=== PATIENT | female | born 1950 | race African-American/Black ===

== ENCOUNTER 2016-07-23 22:07 | Emergency (ER) | payer SELFPAY ==
[~2016-07-23] VITALS: Ht 162.6 cm; Wt 61.0 kg
[2016-07-23 22:09] VITALS: BP 169/83
== END 2016-07-23 22:33 | disposition left against medical advice (07) ==
LOC: ER 22:15
DX: R51 Headache (principal); Z53.21 Procedure and treatment not carried out due to patient leaving prior to being seen by health care provider

== ENCOUNTER 2017-12-03 07:21 | Emergency (ER) | payer SELFPAY ==
[~2017-12-03] VITALS: Ht 162.6 cm; Wt 68.0 kg
[2017-12-03] MEDS ORDERED: ALTEPLASE 100MG/VIAL IV ONE (08:30)
[2017-12-03 08:43] LABS: BASOPHILS % 0.4 % (0.0-2.0); EOSINOPHILS % 1.1 % (0.0-5.0); HEMATOCRIT. 36.7 % (36.0-48.0); HEMOGLOBIN. 12.2 g/dL (12.0-16.0); LYMPHOCYTES % 19.1 % (20.0-50.0); MEAN CORPUSCULAR VOLUME 93.1 fL (81.0-99.0); MEAN PLATELET VOLUME 8.2 fl (7.4-10.4); NEUTROPHILS % 71.4 % (40.0-76.0); PLATELET 289 x1000/uL (130-400); RED BLOOD CELL COUNT 3.95 mill/uL (4.2-5.4); RED CELL DISTRIBUTION WIDTH 14.2 % (11.6-14.6)
[2017-12-03 08:48] LABS: CHLORIDE 107 mEq/L (98-107)
[2017-12-03 08:50] LABS: INR 1.1; PROTHROMBIN TIME 10.6 sec (9.1-11.1)
[2017-12-03 08:52] LABS: CLARITY URINE CLEAR (CLEAR); COLOR URINE YELLOW (YELLOW); KETONES URINE NEGATIVE (NEGATIVE); LEUKOCYTE ESTERASE URINE NEGATIVE (NEGATIVE); NITRITE URINE NEGATIVE (NEGATIVE); OCCULT BLOOD URINE TRACE (NEGATIVE); PH URINE 7.5 (4.5-8.0); PROTEIN URINE 1+ (NEGATIVE); SPECIFIC GRAVITY URINE 1.017 (1.005-1.030)
[2017-12-03 08:55] LABS: ETHANOL BLOOD < 10 mg/dL
[2017-12-03 09:21] LABS: *BARBITURATES SCREEN URINE NEGATIVE (NEGATIVE); *BENZODIAZEPINES SCREEN URINE NEGATIVE (NEGATIVE); CANNABINOID URINE SCREEN NEGATIVE (NEGATIVE); OPIATES URINE SCREEN NEGATIVE (NEGATIVE); PHENCYCLIDINE URINE SCREEN NEGATIVE (NEGATIVE)
[2017-12-03 09:22] LABS: *AMPHETAMINES SCREEN URINE NEGATIVE (NEGATIVE); *COCAINE SCREEN URINE NEGATIVE (NEGATIVE); METHADONE URINE SCREEN NEGATIVE (NEGATIVE)
[2017-12-03 10:00] VITALS: BP 160/80
== END 2017-12-03 10:00 | disposition short-term general hospital (02) ==
LOC: ER 07:21 → CANBEDREQ 10:56
DX: I63.9 Cerebral infarction, unspecified (principal); R47.01 Aphasia; I10 Essential (primary) hypertension; E11.9 Type 2 diabetes mellitus without complications; Z86.73 Personal history of transient ischemic attack (TIA), and cerebral infarction without residual deficits
CPT/HCPCS: 36415; 70450; 71045; 80053; 80305; 81003; 82962; 83880; 84484; 85025; 85610; 93005; 96374; 99285; G0482; J2997; J7030; Z7610

== ENCOUNTER 2018-03-17 18:08 | Emergency (ER) | payer MEDICARE, MEDICAID ==
[~2018-03-17] VITALS: Ht 167.6 cm; Wt 59.0 kg
[2018-03-17] MEDS ORDERED: CEFTAZIDIME PENTAHYDRATE 1G/VIAL IV NR (18:45)
[2018-03-17] MEDS ORDERED: ACETAZOLAMIDE SODIUM 500MG/VIAL IV ONE (18:45)
[2018-03-17] MEDS ORDERED: VANCOMYCIN HCL 1 GM/VIAL IJ NR (18:45)
[2018-03-17 19:34] VITALS: BP 161/77
[2018-03-17] MEDS ORDERED: BUPIVACAINE HCL/PF 0.75% (7.5MG/ML) 10ML INJ ONE (19:45)
[2018-03-17] MEDS ORDERED: LIDOCAINE HCL 2%/EPINEPHRINE/PF 10 ML VIAL INFIL ONE (19:45)
[2018-03-18] MEDS ORDERED: NEO/POLYMYX B SULF/DEXAMETH 0.1% OPHTH SUSP 5ML RIGHTEYE SCH
[2018-03-18] MEDS ORDERED: PREDNISOLONE ACETATE 1% OPHTH DROPS 1ML RIGHTEYE SCH
== END 2018-03-18 00:40 | disposition left against medical advice (07) ==
LOC: ER 18:08
DX: H44.001 Unspecified purulent endophthalmitis, right eye (principal); E11.9 Type 2 diabetes mellitus without complications
CPT/HCPCS: 96374; 99283; J0713; J1120; J3370; J3490

== ENCOUNTER 2018-05-15 14:43 | Inpatient (IN) | payer MEDICARE, MEDICAID ==
[~2018-05-15] VITALS: Ht 167.6 cm; Wt 59.9 kg
[2018-05-15] MEDS ORDERED: SODIUM CHLORIDE 0.9% 1,000 ML IV ONE (14:47)
[2018-05-15 15:16] LABS: BASOPHILS % 0.4 % (0.0-2.0); EOSINOPHILS % 0.6 % (0.0-5.0); HEMATOCRIT. 39.6 % (36.0-48.0); HEMOGLOBIN. 13.1 g/dL (12.0-16.0); LYMPHOCYTES % 25.7 % (20.0-50.0); MEAN CORPUSCULAR HEMOGLOBIN 30.4 pg (28.0-32.0); MEAN CORPUSCULAR VOLUME 91.8 fL (81.0-99.0); MEAN PLATELET VOLUME 8.1 fl (7.4-10.4); MONOCYTES % 10.7 % (2.0-8.0); NEUTROPHILS % 62.6 % (40.0-76.0); PLATELET 331 x1000/uL (130-400); RED BLOOD CELL COUNT 4.31 mill/uL (4.2-5.4); RED CELL DISTRIBUTION WIDTH 15.2 % (11.6-14.6)
[2018-05-15 15:23] LABS: CHLORIDE 101 mEq/L (98-107)
[2018-05-15 15:25] LABS: PARTIAL THROMBOPLASTIN TIME 25.7 sec (23.4-31.0); PROTHROMBIN TIME 10.3 sec (9.1-11.1)
[2018-05-15 15:28] LABS: ETHANOL BLOOD < 10 mg/dL
[2018-05-15] MEDS ORDERED: IOHEXOL-350 100 ML BOTTLE ONE (16:20)
[2018-05-15] MEDS ORDERED: ASPIRIN 325MG EC TABLET PO ONE (17:00)
[2018-05-15 19:39] LABS: CLARITY URINE CLEAR (CLEAR); COLOR URINE YELLOW (YELLOW); KETONES URINE NEGATIVE (NEGATIVE); LEUKOCYTE ESTERASE URINE NEGATIVE (NEGATIVE); NITRITE URINE NEGATIVE (NEGATIVE); OCCULT BLOOD URINE 1+ (NEGATIVE); PH URINE 6.5 (4.5-8.0); PROTEIN URINE 1+ (NEGATIVE); SPECIFIC GRAVITY URINE 1.074 (1.005-1.030)
[2018-05-15 20:05] LABS: *AMPHETAMINES SCREEN URINE NEGATIVE (NEGATIVE); *BARBITURATES SCREEN URINE NEGATIVE (NEGATIVE); *BENZODIAZEPINES SCREEN URINE NEGATIVE (NEGATIVE); *COCAINE SCREEN URINE NEGATIVE (NEGATIVE)
[2018-05-15 20:06] LABS: CANNABINOID URINE SCREEN NEGATIVE (NEGATIVE); METHADONE URINE SCREEN NEGATIVE (NEGATIVE); OPIATES URINE SCREEN NEGATIVE (NEGATIVE); PHENCYCLIDINE URINE SCREEN NEGATIVE (NEGATIVE)
[2018-05-15] MEDS ORDERED: CEFTRIAXONE 1 G PREMIX 50 ML IV ONE (20:30)
[2018-05-15] MEDS ORDERED: GUAIFENESIN 200MG/10ML SUGAR FREE UDC PO PRN (21:00)
[2018-05-15] MEDS ORDERED: ACETAMINOPHEN 650MG SUPP PR PRN (21:00)
[2018-05-15] MEDS ORDERED: ONDANSETRON HCL 4MG/2ML INJ IV PRN (21:00)
[2018-05-15] MEDS ORDERED: IPRATROPIUM/ALBUTEROL 0.5-3(2.5)MG/3ML NEB INH PRN (21:00)
[2018-05-15] MEDS ORDERED: ACETAMINOPHEN 650MG/20.3ML UDC GT PRN (21:00)
[2018-05-15] MEDS ORDERED: DOCUSATE SODIUM 100MG CAPSULE PO PRN (21:00)
[2018-05-15] MEDS ORDERED: MAGNESIUM/ALUMINUM HYDROXIDE/SIMETHICONE 30ML UDC PO PRN (21:00)
[2018-05-15] MEDS ORDERED: DIPHENHYDRAMINE 50MG/ML VIAL IV PRN (21:00)
[2018-05-15] MEDS ORDERED: ACETAMINOPHEN 325MG TABLET PO PRN (21:00)
[2018-05-15] MEDS: CLONIDINE 0.1MG TABLET PO PRN (22:28)
[2018-05-16 01:20] VITALS: BP 172/109
[2018-05-16] MEDS ORDERED: NA PHOS,M-B/NA PHOS,DI-BA ENEMA 118ML PR PRN (02:46)
[2018-05-16 04:00] VITALS: BP 128/80
[2018-05-16] MEDS: SODIUM CHLORIDE 0.9% INJ 3ML FLUSH IVF SCH ×3 (05:26→21:01)
[2018-05-16 06:39] LABS: BASOPHILS % 0.2 % (0.0-2.0); EOSINOPHILS % 0.6 % (0.0-5.0); HEMATOCRIT. 37.1 % (36.0-48.0); HEMOGLOBIN. 12.3 g/dL (12.0-16.0); MEAN CORPUSCULAR HEMOGLOBIN 30.5 pg (28.0-32.0); MEAN CORPUSCULAR VOLUME 91.8 fL (81.0-99.0); MEAN PLATELET VOLUME 8.2 fl (7.4-10.4); MONOCYTES % 9.6 % (2.0-8.0); NEUTROPHILS % 62.6 % (40.0-76.0); PLATELET 302 x1000/uL (130-400); RED BLOOD CELL COUNT 4.04 mill/uL (4.2-5.4); RED CELL DISTRIBUTION WIDTH 14.8 % (11.6-14.6)
[2018-05-16 06:42] LABS: CHLORIDE 107 mEq/L (98-107)
[2018-05-16 06:59] LABS: HDL CHOLESTEROL 78 mg/dL (40-59)
[2018-05-16 07:05] LABS: LDL CHOLESTEROL 91 mg/dL (5-100)
[2018-05-16 08:00] VITALS: BP 148/82
[2018-05-16] MEDS ORDERED: DEXTROSE 50% WATER 50ML SYRINGE IV PRN (09:00)
[2018-05-16] MEDS: ASPIRIN 81MG EC TABLET PO SCH (10:22)
[2018-05-16] MEDS: ENOXAPARIN 40MG/0.4ML SYR SUBCUT SCH (10:23)
[2018-05-16 12:00] VITALS: BP 159/85
[2018-05-16] MEDS: BLOOD SUGAR DIAGNOSTIC STRIP TEST SCH ×3 (12:50→21:02)
[2018-05-16] MEDS: INSULIN LISPRO 100 UNITS/ML SUBCUT SCH ×3 (13:30→21:02)
[2018-05-16] MEDS: CIPROFLOXACIN 0.3% OPHTH SOLN 2.5ML RIGHTEYE SCH ×2 (16:39→21:00)
[2018-05-16 18:00] VITALS: BP 140/80
[2018-05-16] MEDS: PREDNISOLONE ACETATE 1% OPHTH DROPS 1ML RIGHTEYE SCH ×2 (19:01→23:59)
[2018-05-16 20:00] VITALS: BP 159/75
[2018-05-17] VITALS: BP 154/76
[2018-05-17 04:00] VITALS: BP 141/65
[2018-05-17] MEDS: SODIUM CHLORIDE 0.9% INJ 3ML FLUSH IVF SCH ×3 (05:41→21:41)
[2018-05-17] MEDS: PREDNISOLONE ACETATE 1% OPHTH DROPS 1ML RIGHTEYE SCH ×3 (05:41→17:23)
[2018-05-17] MEDS: INSULIN LISPRO 100 UNITS/ML SUBCUT SCH ×4 (07:26→21:43)
[2018-05-17] MEDS: BLOOD SUGAR DIAGNOSTIC STRIP TEST SCH ×4 (07:26→21:34)
[2018-05-17 08:00] VITALS: BP 190/93
[2018-05-17] MEDS: CLONIDINE 0.1MG TABLET PO PRN (08:33)
[2018-05-17] MEDS: CIPROFLOXACIN 0.3% OPHTH SOLN 2.5ML RIGHTEYE SCH ×4 (08:33→21:41)
[2018-05-17] MEDS: ENOXAPARIN 40MG/0.4ML SYR SUBCUT SCH (08:33)
[2018-05-17] MEDS: ASPIRIN 81MG EC TABLET PO SCH (08:33)
[2018-05-17 12:00] VITALS: BP 124/84
[2018-05-17] MEDS ORDERED: CIPR2.5D9 RIGHTEYE (14:16)
[2018-05-17] MEDS ORDERED: ASPI-1158 PO (14:16)
[2018-05-17] MEDS ORDERED: METF-414 MT (14:17)
[2018-05-17] MEDS ORDERED: PRED10DR7 RIGHTEYE (14:29)
[2018-05-17] MEDS ORDERED: INSU100I28 SQ (15:39)
[2018-05-17 16:00] VITALS: BP 136/70
[2018-05-17 16:36] LABS: BASOPHILS % 0.5 % (0.0-2.0); EOSINOPHILS % 0.7 % (0.0-5.0); HEMATOCRIT. 35.1 % (36.0-48.0); HEMOGLOBIN. 11.6 g/dL (12.0-16.0); LYMPHOCYTES % 19.6 % (20.0-50.0); MEAN CORPUSCULAR HEMOGLOBIN 30.3 pg (28.0-32.0); MEAN CORPUSCULAR VOLUME 91.5 fL (81.0-99.0); MEAN PLATELET VOLUME 8.3 fl (7.4-10.4); MONOCYTES % 11.9 % (2.0-8.0); NEUTROPHILS % 67.3 % (40.0-76.0); PLATELET 287 x1000/uL (130-400); RED BLOOD CELL COUNT 3.83 mill/uL (4.2-5.4); RED CELL DISTRIBUTION WIDTH 14.7 % (11.6-14.6)
[2018-05-17 16:49] LABS: CHLORIDE 105 mEq/L (98-107)
[2018-05-17 16:57] LABS: LDL CHOLESTEROL 105 mg/dL (5-100)
[2018-05-17 16:59] LABS: HDL CHOLESTEROL 65 mg/dL (40-59)
[2018-05-17] MEDS ORDERED: MEDICATION NOT ON FORMULARY EA (Metformin Hcl 1 TAB) MT SCH (17:00)
[2018-05-17] MEDS: METFORMIN HCL 500MG TABLET PO SCH (17:22)
[2018-05-17] MEDS: AMLODIPINE 5MG TABLET PO SCH (17:23)
[2018-05-17 20:00] VITALS: BP 145/77
[2018-05-17] MEDS ORDERED: LEVETIRACETAM 500MG TABLET PO SCH (21:00)
[2018-05-18] VITALS: BP 147/71
[2018-05-18] MEDS: PREDNISOLONE ACETATE 1% OPHTH DROPS 1ML RIGHTEYE SCH ×3 (00:57→11:57)
[2018-05-18 04:00] VITALS: BP 146/77
[2018-05-18] MEDS: SODIUM CHLORIDE 0.9% INJ 3ML FLUSH IVF SCH (06:21)
[2018-05-18] MEDS: BLOOD SUGAR DIAGNOSTIC STRIP TEST SCH (06:50)
[2018-05-18 08:00] VITALS: BP 155/82
[2018-05-18] MEDS: METFORMIN HCL 500MG TABLET PO SCH (08:50)
[2018-05-18] MEDS: ENOXAPARIN 40MG/0.4ML SYR SUBCUT SCH (08:50)
[2018-05-18] MEDS: CIPROFLOXACIN 0.3% OPHTH SOLN 2.5ML RIGHTEYE SCH (08:51)
[2018-05-18] MEDS: AMLODIPINE 5MG TABLET PO SCH (08:51)
[2018-05-18] MEDS: INSULIN LISPRO 100 UNITS/ML SUBCUT SCH ×2 (08:52→11:58)
[2018-05-18] MEDS ORDERED: ASPIRIN 81MG TABLET PO SCH (09:00)
[2018-05-18] MEDS ORDERED: ATOR10TA MT (10:40)
[2018-05-18] MEDS ORDERED: AMLO5TAB4 MT (10:41)
[2018-05-18 11:06] VITALS: BP 130/80
[2018-05-18 12:00] VITALS: BP 140/78
== END 2018-05-18 13:25 | disposition home or self-care (01) | DRG 637 ==
LOC: ER 14:43 → 7WST 17:16 → EDBEDREQ 17:30 → ENRESERV 23:53
PROVIDERS: ADMIT Family Medicine; ATTEND Family Medicine
DX: E11.65 Type 2 diabetes mellitus with hyperglycemia (principal); G93.41 Metabolic encephalopathy; N39.0 Urinary tract infection, site not specified; E44.1 Mild protein-calorie malnutrition; E11.319 Type 2 diabetes mellitus with unspecified diabetic retinopathy without macular edema; H25.10 Age-related nuclear cataract, unspecified eye; H54.61 Unqualified visual loss, right eye, normal vision left eye; I10 Essential (primary) hypertension; F03.90 Unspecified dementia, unspecified severity, without behavioral disturbance, psychotic disturbance, mood disturbance, and anxiety; E11.9 Type 2 diabetes mellitus without complications; I69.30 Unspecified sequelae of cerebral infarction; H10.9 Unspecified conjunctivitis; Z82.49 Family history of ischemic heart disease and other diseases of the circulatory system; Z68.21 Body mass index [BMI] 21.0-21.9, adult; Z79.4 Long term (current) use of insulin
CPT/HCPCS: 36415; 70496; 70498; 70551; 71045; 80061; 80305; 82140; 82962; 83036; 83880; 84484; 93005; 93306; 93880; 96365; 96375; 97116; 97162; 97166; 99285; C1893; J0696; J1650; J1815; J7030; Q9967